=== PATIENT | male | born 1985 | race Caucasian/White ===

== ENCOUNTER → 2016-10-14 | Outpatient (CLI) | payer MEDICAID ==
--- NOTE | 2016-10-14 13:23 | DX ---
Skull, 3 views HISTORY: Hit head on pole a few days ago on 10/11, pain left posterior superior skull, closed head inj ury, concussion Comparison: None FINDINGS: No linear or depressed fracture is identified. There is no pneumocephalus. Impression: Negative.
== END ==
LOC: BRMIMAGING 11:26
PROVIDERS: ATTEND Physician Assistant
DX: S09.90XA Unspecified injury of head, initial encounter (principal)
CPT/HCPCS: 70250-PO